=== PATIENT | female | born 1960 | race Caucasian/White ===

== ENCOUNTER 2017-03-08 14:55 | Emergency (ER) | payer BC ==
[~2017-03-08] VITALS: Ht 167.6 cm; Wt 91.0 kg
[2017-03-08 15:14] VITALS: BP 125/91; PULSE 84; RESP 15; TEMP 98; O2SAT 98
[2017-03-08] MEDS ORDERED: LEXA20TA PO (16:22)
[2017-03-08] MEDS ORDERED: VENTAER INH (16:22)
[2017-03-08] MEDS ORDERED: SYMB80AE INH (16:22)
[2017-03-08] MEDS ORDERED: SODIUM CHLOR 0.9% 1000 ML INJ 1,000 ML IV SCH (16:29)
[2017-03-08] MEDS ORDERED: MORPHINE SULFATE 4 MG/ML INJ IV PUSH ONE ×2 (16:30→19:15)
[2017-03-08] MEDS ORDERED: SODIUM CHLORIDE 0.9% FLUSH 10 ML FLUSH IV FLUSH PRN (16:30)
[2017-03-08] MEDS ORDERED: ONDANSETRON HCL 4 MG/2 ML VIAL IVP ONE (16:30)
[2017-03-08 16:45] LABS: BLOOD, URINE SMALL (NEG); GLUCOSE,URINE NEG (NEG); KETONE, URINE NEG (NEG); NITRITE,URINE NEG (NEG); PH, URINE 5.5 (5.0-8.5)
[2017-03-08 16:51] LABS: AUTOMATED NEUTROPHIL # 5.7 TH/MM3 (1.8-7.7); BASOPHIL # 0.1 TH/MM3 (0-0.2); BASOPHIL % 0.8 % (0.0-2.0); EOSINOPHIL # 0.1 TH/MM3 (0-0.4); EOSINOPHIL % 1.5 % (0.0-4.0); HEMATOCRIT 40.4 % (35.0-46.0); HEMO FLAGS DIFF FINAL; LYMPH % 25.2 % (9.0-44.0); LYMPHOCYTE # 2.2 TH/MM3 (1.0-4.8); MEAN CELL VOLUME 92.9 FL (80.0-100.0); MEAN CORPUSCULAR HEMOGLOBIN 31.7 PG (27.0-34.0); MEAN CORPUSCULAR HGB CONC 34.1 % (32.0-36.0); MONO % 6.3 % (0.0-8.0); NEUT % 66.2 % (16.0-70.0); PLATELET COUNT 239 TH/MM3 (150-450); RED BLOOD COUNT 4.35 MIL/MM3 (4.00-5.30); RED CELL DISTRIBUTION WIDTH 12.2 % (11.6-17.2); WHITE BLOOD COUNT 8.6 TH/MM3 (4.0-11.0)
[2017-03-08 16:51] LABS: METHOD OF COLLECTION CLEAN CATCH
[2017-03-08 16:52] LABS: COMMENT (UR) CULTURE INDICATED; CULTURE IF INDICATED CULTURE INDICATED; RBC, URINE 0-3 /hpf (0-3); RENAL EPITHELIAL CELLS 0-5 /hpf; SQUAMOUS EPITHELIAL CELL URINE 0-5 /hpf (0-5); URINE COLOR YELLOW (YELLW/STRAW); WBC, URINE 15-19 /hpf (0-5)
[2017-03-08 16:56] LABS: CHLORIDE 104 MEQ/L (98-107); POTASSIUM 3.7 MEQ/L (3.5-5.1); SODIUM (NA) 142 MEQ/L (136-145)
[2017-03-08 17:00] LABS: ANION GAP 8 MEQ/L (5-15); BLOOD UREA NITROGEN 13 MG/DL (7-18)
[2017-03-08 17:03] LABS: ALT (GPT) 26 U/L (10-53); AST (GOT) 16 U/L (15-37); GLOMERULAR FILTRATION RATE 62 ML/MIN (>89)
[2017-03-08 17:04] LABS: TOTAL BILIRUBIN ADULT 0.4 MG/DL (0.2-1.0)
[2017-03-08 17:06] LABS: ALKALINE PHOSPHATASE 54 U/L (45-117)
--- NOTE | 2017-03-08 17:43 | PD ---
HPI Chief Complaint: Abdominal Pain Time Seen by Provider: 16:15 Travel History International Travel<30 days: No Contact w/Intl Traveler<30days: No Traveled to known affect area: No History of Present Illness HPI So 56 year-old woman who presents to the emergency department complaining of epigastric pain and abdominal pain it's been ongoing for the past couple days. She states is been coming and going, its been getting progressively more severe. She's had associated nausea but no vomiting. She's never really had similar symptoms in the past. States she does feel hungry but hasn't really been able to eat because of the pain. Only previous abdominal surgical histories a tummy tuck. No intra-abdominal surgeries. She denies any urinary symptoms, no vaginal discharge or vaginal bleeding. She had some abnormally hard stools yesterday but then had a normal bowel movement this morning. Review of systems positive for headache. History Past Medical History Narrative Medical Mild asthma, allergies Tetanus Vaccination: < 5 Years Influenza Vaccination: No Social History Alcohol Use: No Tobacco Use: No Allergies-Medications (Allergen,Severity, Reaction): Coded Allergies: Dilaudid (Verified Adverse Reaction, Intermediate, VOMITING, 03/08/17) Reported Meds & Prescriptions Reported Meds & Active Scripts Active Reported Ventolin Hfa 18 GM Inh (Albuterol Sulfate) 90 Mcg/Act Aer 2 Puff INH Q6H PRN Symbicort Inh (Budesonide/Formoterol Fumarate) 80-4.5 Mcg/Act Aero 1 Puff INH DAILY Lexapro (Escitalopram Oxalate) 20 Mg Tab 20 Mg PO DAILY Review of Systems Except as stated in HPI: all other systems reviewed are Neg Physical Exam Narrative GENERAL: Well-appearing 56 year-old woman, no acute distress. SKIN: Focused skin assessment warm/dry. NECK: Trachea midline. No JVD. CARDIOVASCULAR: Regular rate and rhythm. No murmur appreciated. RESPIRATORY: No accessory muscle use. Clear to auscultation. Breath sounds equal bilaterally. GASTROINTESTINAL: Abdomen flat and soft. There is moderate epigastric and right upper quadrant tenderness to palpation. Positive Guerrero's. MUSCULOSKELETAL: No obvious deformities. No edema. NEUROLOGICAL: Awake and alert. No obvious cranial nerve deficits. Motor grossly within normal limits. Normal speech. PSYCHIATRIC: Appropriate mood and affect; insight and judgment normal. Data Data Last Documented VS Vital Signs Date Time Temp Pulse Resp B/P Pulse Ox O2 Delivery O2 Flow Rate FiO2 03/08/17 18:57 98.2 70 20 115/66 94 Orders Complete Blood Count With Diff (03/08/17 16:29) Comprehensive Metabolic Panel (03/08/17 16:29) Lipase (03/08/17 16:29) Urinalysis - C+S If Indicated (03/08/17 16:29) Us Abdomen Gallbladder (03/08/17 ) Iv Access Insert/Monitor (03/08/17 16:29) Ecg Monitoring (03/08/17 16:29) Oximetry (03/08/17 16:29) Morphine Inj (Morphine Inj) (03/08/17 16:30) Ondansetron Inj (Zofran Inj) (03/08/17 16:30) Sodium Chlor 0.9% 1000 Ml Inj (Ns 1000 M (03/08/17 16:29) Sodium Chloride 0.9% Flush (Ns Flush) (03/08/17 16:30) Urine Culture (03/08/17 16:35) Levofloxacin 500 Mg Premix Inj (Levaquin (03/08/17 19:15) Morphine Inj (Morphine Inj) (03/08/17 19:15) Labs Laboratory Tests Test 03/08/17 03/08/17 16:35 16:38 Urine Collection Type CLEAN CATCH Urine Color YELLOW Urine Turbidity CLEAR Urine pH 5.5 Urine Specific Kinde 1.008 Urine Protein NEG mg/dL Urine Glucose (UA) NEG mg/dL Urine Ketones NEG mg/dL Urine Occult Blood SMALL Urine Nitrite NEG Urine Bilirubin NEG Urine Leukocyte Esterase MOD Urine RBC 0-3 /hpf Urine WBC 15-19 /hpf Urine Squamous Epithelial 0-5 /hpf Cells Urine Renal Epithelial Cells 0-5 /hpf Microscopic Urinalysis Comment CULTURE INDICATED Urine Collection Time 16:35 White Blood Count 8.6 TH/MM3 Red Blood Count 4.35 MIL/MM3 Hemoglobin 13.8 GM/DL Hematocrit 40.4 % Mean Corpuscular Volume 92.9 FL Mean Corpuscular Hemoglobin 31.7 PG Mean Corpuscular Hemoglobin 34.1 % Concent Red Cell Distribution Width 12.2 % Platelet Count 239 TH/MM3 Mean Platelet Volume 9.1 FL Neutrophils (%) (Auto) 66.2 % Lymphocytes (%) (Auto) 25.2 % Monocytes (%) (Auto) 6.3 % Eosinophils (%) (Auto) 1.5 % Basophils (%) (Auto) 0.8 % Neutrophils # (Auto) 5.7 TH/MM3 Lymphocytes # (Auto) 2.2 TH/MM3 Monocytes # (Auto) 0.5 TH/MM3 Eosinophils # (Auto) 0.1 TH/MM3 Basophils # (Auto) 0.1 TH/MM3 CBC Comment DIFF FINAL Differential Comment Sodium Level 142 MEQ/L Potassium Level 3.7 MEQ/L Chloride Level 104 MEQ/L Carbon Dioxide Level 30.0 MEQ/L Anion Gap 8 MEQ/L Blood Urea Nitrogen 13 MG/DL Creatinine 0.93 MG/DL Estimat Glomerular Filtration 62 ML/MIN Rate Random Glucose 90 MG/DL Calcium Level 9.4 MG/DL Total Bilirubin 0.4 MG/DL Aspartate Amino Transf 16 U/L (AST/SGOT) Alanine Aminotransferase 26 U/L (ALT/SGPT) Alkaline Phosphatase 54 U/L Total Protein 8.1 GM/DL Albumin 3.4 GM/DL Lipase 226 U/L [facility] Medical Decision Making Medical Screen Exam Complete: Yes Emergency Medical Condition: Yes Interpretation(s) LABS: CBC is unremarkable. CMP is unremarkable. Lipase is normal. UA has some trace pyuria. Differential Diagnosis Cholecystitis, cholangitis, pancreatitis, gastritis, other Narrative Course Medical decision making INITIAL cause a 56 year-old woman presents emergent department with epigastric right upper quadrant abdominal pain social with nausea. She is a lot of upper quadrant tenderness, suspect cholecystitis. Check labs, ultrasound, reassess. FINAL: 56 year-old woman of right upper quadrant pain. Suspect this is symptomatic cholelithiasis. She has gallstones on her ultrasound. She does have right upper quadrant tenderness to could suggest early acute cholecystitis. She looks well. She's not had similar problems. She has no hard evidence of acute cholecystitis now. I spoke with Dr. Vaughn, will be able to see her in the office first thing Friday morning. I discussed this with the patient and she is agreeable. We'll place her on antibiotics, pain medicine, she'll return for any worsening symptoms, and will set her up for urgent outpatient cholecystectomy. Diagnosis Primary Impression: Symptomatic cholelithiasis Additional Instructions: Take Levaquin as prescribed. Use Lortab if needed for pain. Use Zofran if needed for nausea or vomiting. Follow-up with Dr. Vaughn. Call his office first thing Friday morning at 8:15 AM. Return to the emergency department any worsening abdominal pain, vomiting, fevers, or any other new or worsening symptoms. Med/Other Pt SpecificInfo: Prescription(s) given Scripts Levofloxacin 500 Mg Ocrolu395 Mg PO DAILY #5 TAB Ref 0 Prov:Dheeraj Rios MD 03/08/17 Ondansetron Odt (Zofran Odt)4 Mg Tab4 Mg SL Q8HR PRN (Nausea/Vomiting) #15 TAB May substitute non-ODT form. Prov:Dheeraj Rios MD 03/08/17 Hydrocodone-Acetaminophen (Lortab)5-325 Mg Tab1-2 Tab PO Q6H PRN (PAIN) #20 TAB Prov:Dheeraj Rios MD 03/08/17 Disposition: 01 DISCHARGE HOME Condition: Stable Dheeraj Rios MD Mar 08, 2017 17:43
[2017-03-08 17:45] VITALS: BP 131/66; PULSE 71; RESP 16; O2SAT 98
--- NOTE | 2017-03-08 18:47 | RADHPO ---
EXAM DATE/TIME: 03/08/2017 17:20 [facility] COMPARISON: No previous studies available for comparison. INDICATIONS : Right upper quadrant pain. MEDICAL HISTORY : Asthma. Depression. Nausea. SURGICAL HISTORY : Tummy tuck. Breast lift. Hernia repair. ENCOUNTER: Initial ACUITY: 1 day PAIN SCORE: 5/10 LOCATION: Right upper quadrant MEASUREMENTS: LIVER: 16.0 cm length COMMON DUCT: 5 mm RIGHT KIDNEY: 11.6 x 4.9 x 5.3 cm FINDINGS: LIVER: Heterogeneous echotexture without focal lesion or ductal dilatation. Hepatopedal flow seen in the po rtal vein. COMMON DUCT: No intraluminal mass or stone visualized. GALLBLADDER: Multiple echogenic and shadowing stones within the gallbladder lumen which are mobile. The largest s tone measures 1.2 cm. Gallbladder wall thickness measures 3 mm. Negative sonographic Guerrero's sign. PANCREAS: Not well seen RIGHT KIDNEY: No evidence of hydronephrosis, stone, or mass. CONCLUSION: Multiple mobile gallstones with normal dimension common hepatic duct. Mild hepatomegaly with heterog eneous echotexture but no focal lesions. Navi Kendrick MD on March 08, 2017 at 18:43 Board Certified Radiologist. This report was verified electronically.
[2017-03-08 18:57] VITALS: BP 115/66; PULSE 70; RESP 20; TEMP 98.2; O2SAT 94
[2017-03-08] MEDS ORDERED: LEVOFLOXACIN 500 MG PREMIX INJ 100 ML IV ONE (19:15)
[2017-03-08] MEDS ORDERED: HYDR-3533 PO (19:30)
[2017-03-08] MEDS ORDERED: LEVO500T8 PO (19:30)
[2017-03-08] MEDS ORDERED: ZOFR4TAB3 SL (19:30)
[2017-03-08 20:44] VITALS: BP 122/62
== END 2017-03-08 21:01 | disposition home or self-care (01) ==
LOC: PHED 14:55
DX: K80.20 Calculus of gallbladder without cholecystitis without obstruction (principal); J45.909 Unspecified asthma, uncomplicated
CPT/HCPCS: 76705; 80053; 81001; 83690; 85025; 87086; 96361; 96374; 96375; 96376; 99285; J1956; J2270; J2405; J7030

== ENCOUNTER → 2017-03-12 | Day surgery (SDC) | payer BC ==
[~2017-03-12] MED LIST: ACETAMINOPHEN 1000 MG/100 ML VIAL IV ONE; ACETAMINOPHEN/HYDROcodone 325 MG/5 MG TAB ONE; BUPIVACAINE/EPINEPHRINE 0.5% PF 30 ML VIAL ONE; HYDR-3533 PO; KETOROLAC TROMETHAMINE 30 MG/ML (IVP) VIAL IV PUSH ONE; LACTATED RINGER'S 1000 ML INJ 1,000 ML ONE; LEVO500T8 PO; LEXA20TA PO; MEPERIDINE HCL 25 MG/ML VIAL ONE; MEPERIDINE HCL 50 MG/ML VIAL ONE; MIDAZOLAM HCL 2 MG/2 ML VIAL ONE; ONDANSETRON HCL 4 MG/2 ML VIAL IV PUSH ONE; PROPOFOL 200 MG/20 ML AMP IV ONE; SYMB80AE INH; VENTAER INH; ZOFR4TAB3 SL; ceFAZolin INJ 1,000 MG VIAL ONE; metroNIDAZOLE 500 MG INJ 100 ML IV ONE
--- NOTE | 2017-03-12 17:03 | TN ---
cc: DAVID VAUGHN DATE OF SURGERY 03/12/17 PREOPERATIVE DIAGNOSIS Cholelithiasis, cholecystitis. POSTOPERATIVE DIAGNOSIS Cholelithiasis, cholecystitis. PROCEDURE Laparoscopic cholecystectomy. ANESTHESIA General. INDICATIONS This is a pleasant 56-year-old female who was visiting in town from [place]. She had classic signs and symptomatology consistent with cholelithiasis, cholecystitis. She was seen and evaluated in the emergency room and confirmed with imaging. Plans were made for above. PROCEDURE Laparoscopic cholecystectomy. SURGEON Dr. Vaughn PROCEDURE The patient is in the operating room. After general anesthesia her abdomen was prepped with Betadine solution. A time-out was done, antibiotics were given. Made an incision just below the umbilicus and Veress needle was inserted, saline load test performed. The abdomen was insufflated up to 15 mmHg. 10 mm trocar was introduced. Three other working ports were placed, 5 mm below the xyphoid, 5 mm in between the two previously placed ports. The gallbladder can be grasped superiorly and laterally identifying the cystic duct, the cystic artery which were doubly ligated and transected. The gallbladder was then teased off the gallbladder bed and pulled out through the umbilical incision which must be elongated slightly because of the amount of stones. The gallbladder is then passed off the field. We then place the trocars and check our dissection site and there was excellent hemostasis without biliary leakage. Liver is smooth, peritoneal surface, there is no other gross abnormalities seen. The trocars were then removed after the CO2 and irrigant is removed. The incision at the umbilicus that was elongated, the fascial layer was closed with a 0 Vicryl and the skin is closed with a 4-0 Vicryl at all three skin sites. It is noted that the umbilical incision is through a previous scar from an abdominoplasty. The patient tolerated the procedure well and had no immediate postop complication. David Vaughn MD JDB/EO /4:39 PM /4:53 PM
== END | disposition home or self-care (01) ==
LOC: ESDC 07:11
PROVIDERS: ATTEND Surgery
DX: K80.10 Calculus of gallbladder with chronic cholecystitis without obstruction (principal)
CPT/HCPCS: 00790; 47562; 88304; J0131; J0690; J1885; J2175; J2250; J2405; J3010; J7120